=== PATIENT | female | born 1975 | race Caucasian/White ===

== ENCOUNTER 2020-02-11 11:23 | Emergency (ER) | payer BC ==
[~2020-02-11] VITALS: Ht 162.6 cm; Wt 81.7 kg
[2020-02-11] MEDS ORDERED: ARMOUR THYROID90 M1 PO (11:36)
[2020-02-11 12:02] LABS: URINE BILIRUBIN NEGATIVE (Negative); URINE BLOOD NEGATIVE (Negative); URINE CLARITY CLEAR; URINE COLOR YELLOW; URINE GLUCOSE-RANDOM* NEGATIVE (Negative); URINE KETONES NEGATIVE (Negative); URINE LEUKOCYTES-REFLEX NEGATIVE (Negative); URINE NITRITE-REFLEX NEGATIVE (Negative); URINE PROTEIN (DIPSTICK) NEGATIVE (Negative); URINE UROBILINOGEN 0.2 E.U./dl (0.2-1.0)
[2020-02-11 12:16] LABS: ABSOLUTE NEUTROPHILS 3.5 thou/uL (1.4-8.2); BASOPHILS 0.9 % (0.0-2.0); EOSINOPHILS 2.7 % (0.0-3.0); HEMATOCRIT 39.1 % (37.0-47.0); HEMOGLOBIN 13.1 gm/dL (12.0-15.0); LYMPHOCYTES 31.9 % (24.0-44.0); MCH 28.8 pg (26.0-34.0); MCHC 33.4 g/dL (28.0-37.0); MONOCYTES 7.3 % (1.0-8.0); PLATELET COUNT 264 thou/uL (150-400); POLYS 57.2 % (36.0-66.0); RBC 4.54 mil/uL (4.20-5.00); RDW 13.8 % (10.5-14.5); WBC 6.1 thou/uL (4.0-11.0)
[2020-02-11 12:17] LABS: ANION GAP 12 mmol/L (7-16); BUN 15 mg/dL (7-18); CALCIUM 8.9 mg/dL (8.5-10.1); CHLORIDE 104 mmol/L (98-107); CO2 22 mmol/L (21-32); GLUCOSE 107 mg/dL (74-106); POTASSIUM 3.7 mmol/L (3.5-5.1); SODIUM 138 mmol/L (136-145)
[2020-02-11 12:27] LABS: ALBUMIN 3.8 g/dL (3.4-5.0); SGOT 31 U/L (15-37); SGPT 37 U/L (30-65); TOTAL BILIRUBIN 0.3 mg/dL (0.2-1.0); TOTAL PROTEIN 7.1 g/dL (6.4-8.2); TROPONIN-I <0.06 ng/mL (<0.06)
[2020-02-11] MEDS ORDERED: ATIVAN0.5 M1 PO (13:17)
[2020-02-11 13:40] VITALS: BP 121/84
--- NOTE | 2020-02-12 08:43 | EKG ---
[facility] [place] [address] ELECTROCARDIOGRAM REPORT Name: LEAH ADAME Room #: DEP [facility]#: [id number] Admission: 02/11/20 Attend Phys: Discharge: 02/11/20 Date of : 77 Report #: [id number] THIS REPORT FOR: cc: ALEA SIMMONS,ALEA Araya,Piter Cheung MD ~ THIS REPORT FOR: //name// [facility] ED Test Date: 2020-02-11 Test Time: 11:32:48 Pat Name: LEAH ADAME Department: Room: Gender: F Docket Clerk: CHANDRIKA : 1975 Requested By: Jillian Horne Order Number: [id number] MD: Piter Araya Measurements Intervals Blanco Rate: 98 P: 50 AR: 139 QRS: 21 QRSD: 90 T: 22 QT: 357 QTc: 456 Interpretive Statements Sinus rhythm No previous ECG available for comparison Electronically Signed On 02-12-2020 8:42:48 CDT by Piter Araya [email or web address] <ELECTRONICALLY SIGNED> By: Piter Araya MD 02/12/20 [id number] MD MAK Fuentes
== END 2020-02-11 13:35 | disposition home or self-care (01) ==
LOC: ER 11:23
PROVIDERS: Physician Assistant
DX: F41.0 Panic disorder [episodic paroxysmal anxiety] (principal); R00.2 Palpitations; R42 Dizziness and giddiness; R20.0 Anesthesia of skin; R10.13 Epigastric pain; E03.9 Hypothyroidism, unspecified; I10 Essential (primary) hypertension; Z90.49 Acquired absence of other specified parts of digestive tract; Z98.51 Tubal ligation status; Z98.890 Other specified postprocedural states; Z79.899 Other long term (current) drug therapy